=== PATIENT | female | born 1990 | race Caucasian/White ===

== ENCOUNTER 2025-09-25 06:06 | Emergency (ER) | payer OTHER ==
[~2025-09-25] VITALS: Ht 165.1 cm; Wt 91.3 kg
[2025-09-25] MEDS: LIDOCAINE 5% PATCH TD ONE (09:11)
[2025-09-25] MEDS: ACETAMINOPHEN 500 MG TAB PO ONE (09:11)
[2025-09-25] MEDS: IBUPROFEN 600 MG TAB PO ONE (09:11)
[2025-09-25] MEDS ORDERED: LIDO1ADH93 TD (11:00)
[2025-09-25 11:06] VITALS: BP 107/61; TEMP 97.1; O2SAT 99
== END 2025-09-25 11:11 | disposition home or self-care (01) ==
LOC: M ED 06:06
DX: M43.06 Spondylolysis, lumbar region (principal); Z86.711 Personal history of pulmonary embolism; Z98.84 Bariatric surgery status; Z79.899 Other long term (current) drug therapy